=== PATIENT | female | born 1970 | race African-American/Black ===

== ENCOUNTER 2021-05-26 22:52 | Emergency (ER) | payer OTHER ==
[~2021-05-26] VITALS: Ht 167.6 cm; Wt 88.9 kg
[~2021-05-26 22:52] MED LIST: ANTIVERT25 M1 PO; IMODIUM A-D2 MG PO; PEPCID40 MG PO
[2021-05-26] MEDS ORDERED: AMLODIPINE-OLM1 EAC2 PO (23:21)
[2021-05-27] MEDS ORDERED: DOLOGESIC 500-1 EACH PO (01:03)
[2021-05-27] MEDS ORDERED: FLONASE16 GM NASAL (01:03)
== END 2021-05-27 01:30 ==
LOC: ER 22:52
DX: R51.9 Headache, unspecified (principal); R42 Dizziness and giddiness; J01.00 Acute maxillary sinusitis, unspecified; Z91.018 Allergy to other foods; I10 Essential (primary) hypertension